=== PATIENT | female | born 1955 | race Caucasian/White ===

== ENCOUNTER 2021-11-27 15:07 | Emergency (ER) | payer OTHER ==
[2021-11-27 16:30] LABS: HEMOGLOBIN 13.8 gm/dl (12.3-15.3); RED BLOOD COUNT 4.36 M/UL (4.00-5.10); WHITE BLOOD COUNT 7.2 K/UL (4.5-11.0)
[2021-11-27 16:53] LABS: BUN/CREATININE RATIO 15 (0-10)
== END 2021-11-27 18:01 | disposition home or self-care (01) ==
LOC: ER1 15:07
PROVIDERS: Physician Assistant
DX: U07.1 COVID-19 (principal); J12.82 Pneumonia due to coronavirus disease 2019; E78.5 Hyperlipidemia, unspecified; I10 Essential (primary) hypertension; Z90.49 Acquired absence of other specified parts of digestive tract
CPT/HCPCS: 71045; 80053; 85025; 93005; 99285